=== PATIENT | male | born 1975 | race American Indian/Alaskan Native ===

== ENCOUNTER 2020-10-17 09:12 | Observation (INO) | payer OTHER ==
--- NOTE | 2020-10-17 09:59 | Event Note ---
ED Screening Note ED Screening Note: LEFT SIDE CP AND LA PAIN NO NAUSEA NO DIAPHORESIS NOTHING MAKES PAIN BETTER OR WORSE CIG THC ETOH HTN NEUROPATHY DUE TO ACCIDENT NO FAM HX EKG TO ER MD This initial assessment/diagnostic orders/clinical plan/treatment(s) is/are subject to change based on patients health status, clinical progression and re- assessment by fellow clinical providers in the ED. Further treatment and workup at subsequent clinical providers discretion. Patient/guardian urged not to elope from the ED as their condition may be serious if not clinically assessed and managed. Initial orders include: LABS RO ACS
[2020-10-17] MEDS ORDERED: ASPIRIN 81 MG TAB CHEW PO ONE (10:00)
[2020-10-17] MEDS ORDERED: NITROGLYCERIN 0.4 MG TAB SUBL SL PRN (10:22)
--- NOTE | 2020-10-17 10:44 | XRay Report ---
XR chest 1V ap INDICATION / CLINICAL INFORMATION: Chest Pain. COMPARISON: None available. FINDINGS: SUPPORT DEVICES: None. HEART /PULMONARY VASCULATURE: No significant abnormality. LUNGS / PLEURA: No significant pulmonary or pleural abnormality. No pneumothorax. ADDITIONAL FINDINGS: No significant additional findings. IMPRESSION: 1. No acute findings. Signer Name: Lorenzo Lorenz MD Signed: 10/17/2020 10:40 AM Workstation Name: [id number]
--- NOTE | 2020-10-17 10:52 | Emergency Department Report ---
ED Chest Pain HPI - General Chief Complaint: Chest Pain Stated Complaint: CHEST PAIN, LEFT SIDE OF BODY TINGLIG Time Seen by Provider: 10/17/20 09:51 Source: patient Mode of arrival: Ambulatory Limitations: No Limitations - History of Present Illness Initial Comments: 45-year-old male with no known medical history presents complaining of mid substernal chest pain radiating to his left arm since 6 AM this morning. He reports that the pain has gotten worse and worse and there are associated palpitations. He describes the pain as pressure-like, 8 out of 10 in severity. He has not tried taking anything for his pain. He reports that for the past we ek he has been having intermittent episodes of chest pain lasting a few minutes at a time. However, this episode lasted for much longer and so he decided to come in for further evaluations. He denies any associated fever, headache, vision change, neck pain, abdominal pain, nausea/vomiting, shortness of breath, cough, or any other complaints. - Related Data Home Medications Medication Instructions Recorded Confirmed Last Taken Nebivolol HCl [Bystolic] 5 mg PO QDAY 10/17/20 10/17/20 10/17/20 amLODIPine 5 mg PO DAILY 10/17/20 10/17/20 10/17/20 Allergies Allergy/AdvReac Type Severity Reaction Status Date / Time No Known Allergies Allergy Unverified 10/17/20 09:54 Heart Score - HEART Score History: Moderately suspicious EKG: Non-specific Age: 45-65 Risk factors: No known risk factors Troponin: < normal limit HEART Score: 3 - EKG Read Time Time EKG Completed: 09:50 EKG Read Time: 09:55 ED Review of Systems ROS: Stated complaint: CHEST PAIN, LEFT SIDE OF BODY TINGLIG Other details as noted in HPI Constitutional: denies: chills, fever Eyes: denies: eye pain, vision change ENT: denies: throat pain, congestion Respiratory: denies: cough, shortness of breath Cardiovascular: chest pain, palpitations. denies: syncope Gastrointestinal: denies: abdominal pain, nausea, vomiting Genitourinary: denies: dysuria, frequency Musculoskeletal: denies: back pain, myalgia Skin: denies: rash Neurological: denies: headache, weakness, numbness Psychiatric: denies: depression ED Past Medical Hx - Past Medical History Hx Hypertension: Yes Additional medical history: Neuropathy - Surgical History Past Surgical History?: No - Social History Smoking Status: Current Every Day Smoker Substance Use Type: Alcohol, Marijuana - Medications Home Medications: Home Medications Medication Instructions Recorded Confirmed Last Taken Type Nebivolol HCl [Bystolic] 5 mg PO QDAY 10/17/20 10/17/20 10/17/20 History amLODIPine 5 mg PO DAILY 10/17/20 10/17/20 10/17/20 History ED Physical Exam - General Limitations: No Limitations - Other Other exam information: GENERAL: Well developed and well nourished. No acute distress HEENT: Normocephalic. No obvious signs of trauma. Moist mucous membranes. EYES: Extraocular movements are intact. Pupils are equal round and reactive to light bilaterally NECK: Supple. Trachea is midline. LUNGS: Nonlabored breathing. Equal chest rise bilaterally. Clear to auscultation bilaterally. HEART/CARDIOVASCULAR: Regular rate and rhythm. No murmurs or rubs. VASCULAR: 2+ peripheral pulses. ABDOMEN: Abdomen is soft and nondistended. There is no significant tenderness, guarding or rebound. SKIN: Skin is warm and dry NEURO: Patient is awake, alert, and oriented. workers' compensation magistrate II-XII grossly intact. No focal deficits. Normal motor and sensory exam throughout. Normal speech. MUSCULOSKELETAL: No obvious deformities. No significant tenderness. Normal ROM throughout. ED Course Vital Signs 10/17/20 10/17/20 10/17/20 09:56 10:28 10:30 Temperature 98.5 F Pulse Rate 53 L 63 61 Respiratory 16 13 12 Rate Blood Pressure 132/84 145/109 O2 Sat by Pulse 100 100 100 Oximetry 10/17/20 10/17/20 10/17/20 10:46 11:00 11:16 Temperature Pulse Rate 53 L 58 L 57 L Respiratory 12 18 13 Rate Blood Pressure 128/82 129/75 148/90 O2 Sat by Pulse 100 98 100 Oximetry 10/17/20 10/17/20 10/17/20 11:21 11:30 11:46 Temperature Pulse Rate 61 58 L 57 L Respiratory 13 13 Rate Blood Pressure 148/90 116/77 126/78 O2 Sat by Pulse 98 100 Oximetry 10/17/20 12:00 Temperature Pulse Rate 56 L Respiratory 12 Rate Blood Pressure 121/81 O2 Sat by Pulse 100 Oximetry FLOR score - Flor Score Age > 65: (0) No Aspirin use within the Past 7 Days: (0) No 3 or more CAD Risk Factors: (0) No 2 or more Angina events in past 24 hrs: (1) Yes Known CAD with more than 50% Stenosis: (0) No Elevated Cardiac Markers: (0) No ST Deviation Greater than 0.5mm: (1) Yes FLOR Score: 2 ED Medical Decision Making - Lab Data Result diagrams: 10/17/20 10:29 10/17/20 10:29 Lab Results 10/17/20 10/17/20 10/17/20 Range/Units 10:29 10:29 10:29 WBC 5.1 (4.5-11.0) K/mm3 RBC 4.43 (3.65-5.03) M/mm3 Hgb 14.6 (11.8-15.2) gm/dl Hct 42.5 (35.5-45.6) % MCV 96 H (84-94) fl MCH 33 H (28-32) pg MCHC 35 H (32-34) % RDW 12.7 L (13.2-15.2) % Plt Count 229 (140-440) K/mm3 Lymph % (Auto) 27.2 (13.4-35.0) % [place] % (Auto) 11.0 H (0.0-7.3) % Eos % (Auto) 9.3 H (0.0-4.3) % Baso % (Auto) 0.2 (0.0-1.8) % Lymph # (Auto) 1.4 (1.2-5.4) K/mm3 [place] # (Auto) 0.6 (0.0-0.8) K/mm3 Eos # (Auto) 0.5 H (0.0-0.4) K/mm3 Baso # (Auto) 0.0 (0.0-0.1) K/mm3 Seg Neutrophils % 52.3 (40.0-70.0) % Seg Neutrophils # 2.7 (1.8-7.7) K/mm3 PT 13.4 (12.2-14.9) Sec. INR 0.96 (0.87-1.13) APTT 30.3 (24.2-36.6) Sec. Sodium 137 (137-145) mmol/L Potassium 4.4 (3.6-5.0) mmol/L Chloride 100.8 (98-107) mmol/L Carbon Dioxide 25 (22-30) mmol/L Anion Gap 16 mmol/L BUN 13 (9-20) mg/dL Creatinine 0.8 (0.8-1.3) mg/dL Estimated GFR > 60 ml/min BUN/Creatinine Ratio 16 % Glucose 88 (75-100) mg/dL Calcium 9.4 (8.4-10.2) mg/dL Total Bilirubin 0.90 (0.1-1.2) mg/dL AST 48 H (5-40) units/L ALT 35 (7-56) units/L Alkaline Phosphatase 71 (35-129) units/L Troponin T < 0.010 (0.00-0.029) ng/mL Total Protein 7.3 (6.3-8.2) g/dL Albumin 4.5 (3.9-5) g/dL Albumin/Globulin Ratio 1.6 % - EKG Data -: EKG Interpreted by Me - EKG Data 10/17/20 11:12 Sinus bradycardia. Normal axis. Right bundle branch block. There is approximately [address] elevation noted in lead V1 3 [address] elevation in lead V2. Unclear whether this represents early repolarization. There are no reciprocal changes 10/17/20 11:47 Repeat EKG performed at 1103 is unchanged from prior. Posterior EKG shows no significant ST changes in leads V7-V9 - Radiology Data XR chest 1V ap INDICATION / CLINICAL INFORMATION: Chest Pain. COMPARISON: None available. FINDINGS: SUPPORT DEVICES: None. HEART /PULMONARY VASCULATURE: No significant abnormality. LUNGS / PLEURA: No significant pulmonary or pleural abnormality. No pneumothorax. ADDITIONAL FINDINGS: No significant additional findings. IMPRESSION: 1. No acute findings. Signer Name: Lorenzo Lorenz MD Signed: 10/17/2020 9:40 AM Workstation Name: [id number] - Medical Decision Making 45-year-old male presenting with mid substernal chest pain radiating to the left arm with associated palpitations. Patient has been having intermittent epis odes of chest pain lasting a few minutes but this episode was much longer. He is afebrile and with normal vital signs. He is in no acute distress. His initial EKG showed right bundle branch block with ST elevations in the anterior leads. I discussed with Rashad, the PA who works with Dr. Rodriguez and personally showed him the EKG and they recommend considering STEMI alert. However, when I called the on-call doctor for STEMI alert, he looked at the EKG and does not feel that cardiac alert is appropriate at this time. He recommends normal work-up and management. We will send full set of labs, repeat EKG with posterior leads, and chest x-ray. We will give aspirin and nitroglycerin and re assess. On repeat assessment at 11:40 AM, the patient reports that he has a very mild headache but that his chest pain is resolved. Labs have been resulted and reveal no significant abnormalities. Troponin is negative initially. Repeat EKG was performed and was unchanged from prior. Posterior EKG was performed and showed no acute abnormalities. Nonetheless, the patient will be admitted for f urther work-up and management. All this was discussed with the patient who expressed understanding agreement with the plan of care Critical care attestation.: If time is entered above; I have spent that time in minutes in the direct care of this critically ill patient, excluding procedure time. ED Disposition Clinical Impression: Chest pain Disposition: DC-09 OP ADMIT IP TO THIS HOSP Is pt being admited?: Yes Condition: Stable
[2020-10-17 11:07] LABS: Basophils % (Auto) 0.2 % (0.0-1.8); Eosinophils # (Auto) 0.5 K/mm3 (0.0-0.4); Eosinophils % (Auto) 9.3 % (0.0-4.3); Hematocrit 42.5 % (35.5-45.6); Hemoglobin 14.6 gm/dl (11.8-15.2); Lymphocytes # (Auto) 1.4 K/mm3 (1.2-5.4); Lymphocytes % (Auto) 27.2 % (13.4-35.0); Mean Corpuscular HGB Conc 35 % (32-34); Mean Corpuscular Volume 96 fl (84-94); Monocytes # (Auto) 0.6 K/mm3 (0.0-0.8); Platelet Count 229 K/mm3 (140-440); Red Blood Count 4.43 M/mm3 (3.65-5.03); Red Cell Distribution Width 12.7 % (13.2-15.2)
[2020-10-17 11:16] LABS: INR 0.96 (0.87-1.13)
[2020-10-17 11:17] LABS: Partial Thromboplastin Time 30.3 Sec. (24.2-36.6)
[2020-10-17 11:30] LABS: Alanine Aminotransferase 35 units/L (7-56); Albumin 4.5 g/dL (3.9-5); BUN/Creatinine Ratio 16; Blood Urea Nitrogen 13 mg/dL (9-20); Calcium 9.4 mg/dL (8.4-10.2); Hemolysis Index 38
[2020-10-17 16:14] LABS: Bilirubin,Urine NEG (Negative); Blood,Urine NEG (Negative); Color,Urine Yellow (Yellow); Mucus,Urine FEW /HPF; Protein,Urine <15 mg/dL mg/dL (Negative); WBC,Urine < 1.0 /HPF (0.0-6.0)
[2020-10-17 16:22] LABS: Benzodiazepines Screen,Urine Negative; Methadone Screen,Urine Negative; Opiate Screen,Urine Negative
[2020-10-17 16:40] LABS: Amphetamine Screen,Urine Positive; Cannabinoid Screen,Urine Positive; Cocaine Screen,Urine Positive
--- NOTE | 2020-10-17 18:42 | History and Physical Report ---
History of Present Illness Date of examination: 10/17/20 Date of admission: 10/17/20 11:42 Chief complaint: Chest pain since a.m. History of present illness: 45-year-old male history of hypertension comes in for left-sided chest pain since a.m. Chest pain is substernal. Associated palpitations present. No radiation. Chest pain is about 8 on a scale of 1-10. No shortness of breath. No diaphoresis. No exacerbating or relieving factors. No prior history of for coronary artery disease. No stents. Heart Score - HEART Score History: Moderately suspicious EKG: Non-specific Age: 45-65 Risk factors: No known risk factors Troponin: < normal limit HEART Score: 3 - EKG Read Time Time EKG Completed: 09:50 EKG Read Time: 09:55 - Past Medical History --Hypertension: Yes --Additional medical history: Neuropathy - Surgical History Past Surgical History?: No - Social History Smoking Status: Current Every Day Smoker Substance Use Type: Alcohol, Marijuana - Medications Home Medications: Home Medications Medication Instructions Recorded Confirmed Last Taken Type Nebivolol HCl [Bystolic] 5 mg PO QDAY 10/17/20 10/17/20 10/17/20 History amLODIPine 5 mg PO DAILY 10/17/20 10/17/20 10/17/20 History Review of Systems ROS: Stated complaint: CHEST PAIN, LEFT SIDE OF BODY TINGLIG Other details as noted in HPI Constitutional: denies: chills, fever Eyes: denies: eye pain, vision change ENT: denies: throat pain, congestion Respiratory: denies: cough, shortness of breath Cardiovascular: chest pain, palpitations. denies: syncope Gastrointestinal: denies: abdominal pain, nausea, vomiting Genitourinary: denies: dysuria, frequency Musculoskeletal: denies: back pain, myalgia Skin: denies: rash Neurological: denies: headache, weakness, numbness Psychiatric: denies: depression Medications and Allergies Allergies Allergy/AdvReac Type Severity Reaction Status Date / Time No Known Allergies Allergy Unverified 10/17/20 09:54 Home Medications Medication Instructions Recorded Confirmed Last Taken Type Nebivolol HCl [Bystolic] 5 mg PO QDAY 10/17/20 10/17/20 10/17/20 History amLODIPine 5 mg PO DAILY 10/17/20 10/17/20 10/17/20 History Active Meds: Active Medications Nitroglycerin (Nitroglycerin 0.4 Mg Tab Subl) 0.4 mg SL .Q5MIN PRN PRN Reason: Chest Pain Last Admin: 10/17/20 11:21 Dose: 0.4 mg Documented by: Exam - Constitutional Vitals: Temp Pulse Resp BP Pulse Ox 98.5 F 56 L 12 121/81 100 10/17/20 09:56 10/17/20 12:00 10/17/20 12:00 10/17/20 12:00 10/17/20 12:00 General appearance: Present: no acute distress, well-nourished - EENT Eyes: Present: PERRL ENT: hearing intact, clear oral mucosa - Neck Neck: Present: supple, normal ROM - Respiratory Respiratory effort: normal Respiratory: bilateral: CTA - Cardiovascular Heart rate: 78 Rhythm: regular Heart Sounds: Present: S1 & S2. Absent: rub, click - Extremities Extremities: pulses symmetrical, No edema Peripheral Pulses: within normal limits - Abdominal General gastrointestinal: Present: soft, non-tender, non-distended, normal bowel sounds Male genitourinary: Present: normal - Integumentary Integumentary: Present: clear, warm, dry - Musculoskeletal Musculoskeletal: gait normal, strength equal bilaterally - Psychiatric Psychiatric: appropriate mood/affect, intact judgment & insight - Neurologic Neurologic: CNII-XII intact, moves all extremities - Allied Health Allied health notes reviewed: nursing, case management HEART Score - HEART Score EKG: Non-specific Age: 45-65 Risk factors: No known risk factors Troponin: Troponin T < 0.010 ng/mL (0.00-0.029) 10/17/20 15:48 Troponin: < normal limit Results - Labs CBC & Chem 7: 10/18/20 02:44 10/18/20 02:44 Labs: Laboratory Last Values WBC 5.1 K/mm3 (4.5-11.0) 10/17/20 10:29 RBC 4.43 M/mm3 (3.65-5.03) 10/17/20 10:29 Hgb 14.6 gm/dl (11.8-15.2) 10/17/20 10:29 Hct 42.5 % (35.5-45.6) 10/17/20 10:29 MCV 96 fl (84-94) H 10/17/20 10:29 MCH 33 pg (28-32) H 10/17/20 10: MCHC 35 % (32-34) H 10/17/20 10:29 RDW 12.7 % (13.2-15.2) L 10/17/20 10:29 Plt Count 229 K/mm3 (140-440) 10/17/20 10:29 Lymph % (Auto) 27.2 % (13.4-35.0) 10/17/20 10:29 [place] % (Auto) 11.0 % (0.0-7.3) H 10/17/20 10: Eos % (Auto) 9.3 % (0.0-4.3) H 10/17/20 10: Baso % (Auto) 0.2 % (0.0-1.8) 10/17/20 10: Lymph # (Auto) 1.4 K/mm3 (1.2-5.4) 10/17/20 10: [place] # (Auto) 0.6 K/mm3 (0.0-0.8) 10/17/20 10: Eos # (Auto) 0.5 K/mm3 (0.0-0.4) H 10/17/20 10: Baso # (Auto) 0.0 K/mm3 (0.0-0.1) 10/17/20 10: Seg Neutrophils % 52.3 % (40.0-70.0) 10/17/20 10: Seg Neutrophils # 2.7 K/mm3 (1.8-7.7) 10/17/20 10:29 PT 13.4 Sec. (12.2-14.9) 10/17/20 10:29 INR 0.96 (0.87-1.13) 10/17/20 10: APTT 30.3 Sec. (24.2-36.6) 10/17/20 10:29 Sodium 137 mmol/L (137-145) 10/17/20 10:29 Potassium 4.4 mmol/L (3.6-5.0) 10/17/20 10: Chloride 100.8 mmol/L (98-107) 10/17/20 10: Carbon Dioxide 25 mmol/L (22-30) 10/17/20 10:29 Anion Gap 16 mmol/L 10/17/20 10:29 BUN 13 mg/dL (9-20) 10/17/20 10:29 Creatinine 0.8 mg/dL (0.8-1.3) 10/17/20 10:29 Estimated GFR > 60 ml/min 10/17/20 10:29 BUN/Creatinine Ratio 16 % 10/17/20 10:29 Glucose 88 mg/dL (75-100) 10/17/20 10:29 Calcium 9.4 mg/dL (8.4-10.2) 10/17/20 10:29 Total Bilirubin 0.90 mg/dL (0.1-1.2) 10/17/20 10:29 AST 48 units/L (5-40) H 10/17/20 10:29 ALT 35 units/L (7-56) 10/17/20 10:29 Alkaline Phosphatase 71 units/L (35-129) 10/17/20 10:29 Troponin T < 0.010 ng/mL (0.00-0.029) 10/17/20 15:48 Total Protein 7.3 g/dL (6.3-8.2) 10/17/20 10:29 Albumin 4.5 g/dL (3.9-5) 10/17/20 10:29 Albumin/Globulin Ratio 1.6 % 10/17/20 10:29 Urine Color Yellow (Yellow) 10/17/20 Unknown Urine Turbidity Clear (Clear) 10/17/20 Unknown Urine pH 7.0 (5.0-7.0) 10/17/20 Unknown Ur Specific [place] 1.020 (1.003-1.030) 10/17/20 Unknown Urine Protein <15 mg/dl mg/dL (Negative) 10/17/20 Unknown Urine Glucose (UA) Neg mg/dL (Negative) 10/17/20 Unknown Urine Ketones Neg mg/dL (Negative) 10/17/20 Unknown Urine Blood Neg (Negative) 10/17/20 Unknown Urine Nitrite Neg (Negative) 10/17/20 Unknown Urine Bilirubin Neg (Negative) 10/17/20 Unknown Urine Urobilinogen 2.0 mg/dL (<2.0) 10/17/20 Unknown Ur Leukocyte Esterase Neg (Negative) 10/17/20 Unknown Urine WBC (Auto) < 1.0 /HPF (0.0-6.0) 10/17/20 Unknown Urine RBC (Auto) 3.0 /HPF (0.0-6.0) 10/17/20 Unknown Urine Mucus Few /HPF 10/17/20 Unknown Urine Opiates Screen Negative 10/17/20 Unknown Urine Methadone Screen Negative 10/17/20 Unknown Ur Barbiturates Screen Negative 10/17/20 Unknown Ur Phencyclidine Scrn Negative 10/17/20 Unknown Ur Amphetamines Screen Positive 10/17/20 Unknown U Benzodiazepines Scrn Negative 10/17/20 Unknown Urine Cocaine Screen Positive 10/17/20 Unknown U Marijuana (THC) Screen Positive 10/17/20 Unknown Drugs of Abuse Note Disclamer 10/17/20 Unknown Short CBC 10/17/20 10/18/20 Range/Units 10:29 02:44 WBC 5.1 4.7 (4.5-11.0) K/mm3 Hgb 14.6 13.0 (11.8-15.2) gm/dl Hct 42.5 37.7 (35.5-45.6) % Plt Count 229 195 (140-440) K/mm3 BMP 10/17/20 10/18/20 10:29 02:44 Sodium 137 137 Potassium 4.4 4.1 Chloride 100.8 101.0 Carbon Dioxide 25 27 BUN 13 13 Creatinine 0.8 0.9 Glucose 88 97 Calcium 9.4 9.0 Cardiac Enzymes 10/17/20 10/17/20 10/17/20 Range/Units 10:29 15:48 22:54 Troponin T < 0.010 < 0.010 < 0.010 (0.00-0.029) ng/mL 10/18/20 Range/Units 02:44 Troponin T < 0.010 (0.00-0.029) ng/mL Liver Function 10/17/20 10/18/20 Range/Units 10:29 02:44 Total Bilirubin 0.90 0.50 (0.1-1.2) mg/dL AST 48 H 38 (5-40) units/L ALT 35 29 (7-56) units/L Alkaline Phosphatase 71 62 (35-129) units/L Albumin 4.5 3.9 (3.9-5) g/dL Urine 10/17/20 Range/Units Unknown Urine Color Yellow (Yellow) Urine pH 7.0 (5.0-7.0) Ur Specific [place] 1.020 (1.003-1.030) Urine Protein <15 mg/dl (Negative) mg/dL Urine Glucose (UA) Neg (Negative) mg/dL Assessment and Plan Advance Directives: Yes (Full code) VTE prophylaxis?: Chemical Plan of care discussed with patient/family: Yes - Patient Problems (1) Acute coronary syndrome Current Visit: Yes Status: Acute Plan to address problem: Chest pain work-up Differential diagnosis of costochondritis and GERD serial troponins Lexiscan in the morning (2) Hypertension Current Visit: Yes Status: Chronic Qualifiers: Hypertension type: essential hypertension Qualified Code(s): I10 - Essential (primary) hypertension Plan to address problem: Continue antihypertensives (3) Polysubstance abuse Current Visit: Yes Status: Chronic Plan to address problem: Patient's urinary drug screen is positive for amphetamines cocaine and marijuana Cocaine may be causing the chest pain Patient counseled. (4) DVT prophylaxis Current Visit: Yes Status: Acute Plan to address problem: On heparin and GI prophylaxis
[2020-10-17] MEDS ORDERED: HYDROmorphone 1 MG/1 ML INJ IV PRN (20:55)
[2020-10-17] MEDS ORDERED: oxyCODONE /ACETAMINOPHEN 5-325MG TAB PO PRN (20:55)
[2020-10-17] MEDS ORDERED: ONDANSETRON 4 MG/2 ML INJ IV PRN (20:55)
[2020-10-17] MEDS ORDERED: ACETAMINOPHEN 325 MG TAB PO PRN (20:55)
[2020-10-17] MEDS ORDERED: NEBIVOLOL HCL 5 MG PO SCH (21:15)
[2020-10-17] MEDS: amLODIPine 5 MG TAB PO SCH (22:30)
[2020-10-17] MEDS: METOPROLOL SUCCINATE XL 50 MG TAB PO SCH (22:31)
[2020-10-17] MEDS: FAMOTIDINE 20 MG TAB PO SCH (22:31)
[2020-10-18 03:13] LABS: Basophils # (Auto) 0.1 K/mm3 (0.0-0.1); Basophils % (Auto) 1.3 % (0.0-1.8); Eosinophils # (Auto) 0.4 K/mm3 (0.0-0.4); Eosinophils % (Auto) 7.9 % (0.0-4.3); Hematocrit 37.7 % (35.5-45.6); Lymphocytes # (Auto) 1.3 K/mm3 (1.2-5.4); Lymphocytes % (Auto) 28.8 % (13.4-35.0); Mean Corpuscular HGB Conc 34 % (32-34); Mean Corpuscular Volume 96 fl (84-94); Monocytes # (Auto) 0.5 K/mm3 (0.0-0.8); Monocytes % (Auto) 10.1 % (0.0-7.3); Platelet Count 195 K/mm3 (140-440); Red Blood Count 3.94 M/mm3 (3.65-5.03)
[2020-10-18 03:37] LABS: Alanine Aminotransferase 29 units/L (7-56); Albumin 3.9 g/dL (3.9-5); BUN/Creatinine Ratio 14; Blood Urea Nitrogen 13 mg/dL (9-20); Hemolysis Index 6
[2020-10-18] MEDS: amLODIPine 5 MG TAB PO SCH (09:55)
[2020-10-18] MEDS: METOPROLOL SUCCINATE XL 50 MG TAB PO SCH (09:55)
[2020-10-18] MEDS: FAMOTIDINE 20 MG TAB PO SCH (09:55)
--- NOTE | 2020-10-18 10:56 | Consultation ---
History of Present Illness Consult date: 10/18/20 Consult reason: chest pain History of present illness: 45-year old M with a history of hypertension and takes bystolic 5 mg and amlodipine 5 mg daily. No prior cardiac history. Most recent cardiac workup was done as an outpatient in September. He had an exercise thallium stress test that was normal. Patient exercised 9 minutes of Neo protocol. At that time an echocardiogram demonstrated normal left ventricular systolic function, ejection fraction 55%. He presents to this hospital, admitted with chest pain. Chest pain is poorly characterized and atypical. Chest x-ray is negative. Labs most significant for poly-substance abuse. Serial troponin measurements were normal. His presenting ECG is sinus rhythm with chronic RBBB and early repolarization. Cardiology consultation has been requested. Past History Past Medical History: hypertension Social history: smoking (poly substance abuse), alcohol abuse Medications and Allergies Allergies Allergy/AdvReac Type Severity Reaction Status Date / Time No Known Allergies Allergy Unverified 10/17/20 09:54 Home Medications Medication Instructions Recorded Confirmed Last Taken Type Nebivolol HCl [Bystolic] 5 mg PO QDAY 10/17/20 10/17/20 10/17/20 History amLODIPine 5 mg PO DAILY 10/17/20 10/17/20 10/17/20 History Active Meds: Active Medications Acetaminophen (Acetaminophen 325 Mg Tab) 650 mg PO Q4H PRN PRN Reason: Pain MILD(1-3)/Fever >100.5/FUENTES Amlodipine Besylate (Amlodipine 5 Mg Tab) 5 mg PO DAILY [facility] Last Admin: 10/18/20 09:55 Dose: 5 mg Documented by: Famotidine (Famotidine 20 Mg Tab) 20 mg PO BID [facility] Last Admin: 10/18/20 09:55 Dose: 20 mg Documented by: Hydromorphone HCl (Hydromorphone 1 Mg/1 Ml Inj) 0.5 mg IV Q3H PRN PRN Reason: Pain , Severe (7-10) Metoprolol Succinate (Metoprolol Succinate Xl 50 Mg Tab) 50 mg PO QDAY [facility] Last Admin: 10/18/20 09:55 Dose: 50 mg Documented by: Nitroglycerin (Nitroglycerin 0.4 Mg Tab Subl) 0.4 mg SL .Q5MIN PRN PRN Reason: Chest Pain Last Admin: 10/17/20 11:21 Dose: 0.4 mg Documented by: Ondansetron HCl (Ondansetron 4 Mg/2 Ml Inj) 4 mg IV Q8H PRN PRN Reason: Nausea And Vomiting Oxycodone/Acetaminophen (Oxycodone /Acetaminophen 5-325mg Tab) 1 tab PO Q6H PRN PRN Reason: Pain, Moderate (4-6) Last Admin: 10/17/20 22:31 Dose: 1 tab Documented by: Sodium Chloride (Sodium Chloride 0.9% 10 Ml Flush Syringe) 10 ml IV BID [facility] Last Admin: 10/18/20 09:55 Dose: 10 ml Documented by: Sodium Chloride (Sodium Chloride 0.9% 10 Ml Flush Syringe) 10 ml IV PRN PRN PRN Reason: LINE FLUSH Review of Systems Cardiovascular: chest pain, no palpitations, no edema, no syncope, no shortness of breath Physical Examination Vital Signs Temp Pulse Resp BP Pulse Ox 98.5 F 53 L 16 132/84 100 10/17/20 09:56 10/17/20 09:56 10/17/20 09:56 10/17/20 09:56 10/17/20 09:56 General appearance: no acute distress HEENT: Positive: PERRL Neck: Positive: trachea midline Cardiac: Positive: Reg Rate and Rhythm Lungs: Positive: Normal Breath Sounds Neuro: Positive: Grossly Intact Extremities: Absent: edema Results 10/18/20 02:44 10/18/20 02:44 Cardiac Enzymes 10/17/20 10/18/20 Range/Units 10:29 02:44 AST 48 H 38 (5-40) units/L Coagulation 10/17/20 Range/Units 10:29 PT 13.4 (12.2-14.9) Sec. INR 0.96 (0.87-1.13) APTT 30.3 (24.2-36.6) Sec. CBC 10/17/20 10/18/20 Range/Units 10:29 02:44 WBC 5.1 4.7 (4.5-11.0) K/mm3 RBC 4.43 3.94 (3.65-5.03) M/mm3 Hgb 14.6 13.0 (11.8-15.2) gm/dl Hct 42.5 37.7 (35.5-45.6) % Plt Count 229 195 (140-440) K/mm3 Lymph # (Auto) 1.4 1.3 (1.2-5.4) K/mm3 [place] # (Auto) 0.6 0.5 (0.0-0.8) K/mm3 Eos # (Auto) 0.5 H 0.4 (0.0-0.4) K/mm3 Baso # (Auto) 0.0 0.1 (0.0-0.1) K/mm3 Comprehensive Metabolic Panel 10/17/20 10/18/20 Range/Units 10:29 02:44 Sodium 137 137 (137-145) mmol/L Potassium 4.4 4.1 (3.6-5.0) mmol/L Chloride 100.8 101.0 (98-107) mmol/L Carbon Dioxide 25 27 (22-30) mmol/L BUN 13 13 (9-20) mg/dL Creatinine 0.8 0.9 (0.8-1.3) mg/dL Glucose 88 97 (75-100) mg/dL Calcium 9.4 9.0 (8.4-10.2) mg/dL AST 48 H 38 (5-40) units/L ALT 35 29 (7-56) units/L Alkaline Phosphatase 71 62 (35-129) units/L Total Protein 7.3 6.3 (6.3-8.2) g/dL Albumin 4.5 3.9 (3.9-5) g/dL Assessment and Plan - Patient Problems (1) Chest pain Current Visit: Yes Status: Acute Plan to address problem: 09/2020 exercise thallium stress test that was normal. Patient exercised 9 minutes of Neo protocol. 09/2020 echocardiogram demonstrated normal left ventricular systolic function, ejection fraction 55%. Despite recent negative cardiac workup, will proceed with a cardiac cath for further ischemic assessment.
[2020-10-18] MEDS ORDERED: ASPIRIN 81 MG TAB CHEW PO SCH (11:00)
[2020-10-18] MEDS ORDERED: HEPARIN/NS 5000 UNIT/500ML 1,000 ML IR ONE (11:16)
[2020-10-18] MEDS ORDERED: NITROGLYCERIN SYRINGE 3 ML ONE (11:16)
[2020-10-18 11:46] VITALS: BP 126/84
[2020-10-18] MEDS: MIDAZOLAM 2 MG/2 ML INJ ONE ×2 (11:53→12:07)
[2020-10-18] MEDS: fentaNYL 100 MCG/2 ML INJ ONE ×3 (11:53→12:09)
[2020-10-18] MEDS: LIDOCAINE (2%) 20 MG/1 ML VIAL 20 ML MDV INFILTRATI ONE ×2 (11:53→12:09)
[2020-10-18] MEDS: VERAPAMIL 5 MG/2 ML INJ ONE ×2 (11:54→12:11)
[2020-10-18] MEDS: HEPARIN 10,000 UNITS/10 ML VIAL ONE ×2 (11:54→12:11)
[2020-10-18] MEDS: SODIUM CHLORIDE 0.9% 500 ML 500 ML ONE ×2 (11:55→12:11)
--- NOTE | 2020-10-18 12:32 | Event Note ---
Date: 10/18/20 Cardiac catheterization was completed via the right radial approach, no complications. We found angiographically normal coronary arteries, normal left ventricular systolic function with ejection fraction 55%. No further cardiac work-up is indicated, patient is stable for cardiac discharge. If there is any further chest pain, he should be directed for evaluation of noncardiac chest pain.
[2020-10-18] MEDS ORDERED: traMADol 50 MG TAB PO PRN (12:33)
--- NOTE | 2020-10-18 12:42 | Discharge Summary ---
Providers - Providers Date of Admission: 10/17/20 11:42 Date of discharge: 10/18/20 Attending physician: EDWIN MONCADA 10/18/20 07:39 Consult to Physician [CONS] Routine Comment: Consulting Provider: JONATHAN GLOVER Physician Instructions: Reason For Exam: chest pain 10/18/20 12:33 Consult to Cardiac Rehabilitation [CONS] Routine Reason For Exam: Cardiac Rehab Evaluation Primary care physician: APPLICATIONS MANAGER Hospitalization Condition: Stable Hospital course: Patient is 45-year-old male with history of hypertension, presented with left- sided chest pain since a.m. Chest pain is substernal. Associated palpitations present. No radiation. Chest pain is about 8 on a scale of 1-10. No shortness of breath. No diaphoresis. No exacerbating or relieving factors. No prior history of for coronary artery disease. No stents. He was seen and evaluated in Emergency Department. Troponins were normal. He was admitted to rule out acute coronary syndrome. Patient was evaluated by Cardiology, Dr. Glover. patient had normal stress test 2 weeks ago but because of recurrent chest pain, cardiac cath was recommended. cardiac catheterization was done on 10/18/20 and this revealed normal coronary arteries. He was therefore discharged home. Chest pain, non cardiac due to GERD. Disposition: DC- TO HOME OR SELFCARE Final Discharge Diagnosis (Prints w/discharge instructions): 1.Chest pain due to GERD. 2.GERD - Discharge Diagnoses (1) GERD (gastroesophageal reflux disease) Status: Acute (2) Chest pain Status: Acute Comment: due to GERD (3) Hypertension Status: Chronic Qualifiers: Hypertension type: essential hypertension Qualified Code(s): I10 - [place] manuelal (primary) hypertension Core Measure Documentation - Palliative Care Palliative Care/ Comfort Measures: Not Applicable - Core Measures Any of the following diagnoses?: none Exam - Constitutional Vitals: Temp Pulse Resp BP Pulse Ox 97.9 F 74 19 126/84 98 10/18/20 10:30 10/18/20 10:30 10/18/20 10:30 10/18/20 10:30 10/18/20 10:30 Plan Activity: no restrictions Diet: low fat, low cholesterol, low salt Plan of Treatment: 1.Follow up with PCP in 1 week. 2.Follow up with Dr. Glover , Cardiology in 1 week Follow up with: PRIMARY CAREMD [Primary Care Provider] - 3-5 Days Forms: [facility]el[facility] AGUIRRE D/C Instructions, Work/School Release Form Prescriptions: Famotidine [Pepcid] 20 mg PO BID #60 tablet
[2020-10-18] MEDS ORDERED: SODIUM CHLORIDE 0.9% 1000 ML 1,000 ML IV SCH (12:45)
--- NOTE | 2020-10-19 19:21 | Electrocardiograph Report ---
[facility] Test Date: 2020-10-17 Test Time: 09:50:15 Pat Name: FAMILIA EVANGELISTA Department: ED Room: ED-2 Gender: M Qc Analyst: [id number] : 1975 Requested By: MICK SILVEIRA Order Number: [id number] Reading MD: Luis Rodriguez Measurements Intervals [place] Rate: 55 P: 58 SC: 156 QRS: 48 QRSD: 134 T: 19 QT: 438 QTc: 421 Interpretive Statements Sinus bradycardia Right bundle branch block ST elev, probable normal early repol pattern No previous ECG available for comparison Electronically Signed On 10-19-2020 19:20:59 EDT by Luis Rodriguez
--- NOTE | 2020-10-19 19:24 | Electrocardiograph Report ---
[facility] Test Date: 2020-10-17 Test Time: 11:03:59 Pat Name: FAMILIA EVANGELISTA Department: ED Room: ED-2 Gender: M Labeling Machine Operator: ONEAL : 1975 Requested By: MICK SILVEIRA Order Number: [id number] Reading MD: Luis Rodriguez Measurements Intervals [place] Rate: 52 P: 61 [place]: 152 QRS: 40 QRSD: 128 T: 20 QT: 466 QTc: 436 Interpretive Statements Sinus bradycardia Right bundle branch block ST elev, probable normal early repol pattern Compared to ECG 10/17/2020 09:50:15 No significant changes Electronically Signed On 10-19-2020 19:23:53 EDT by Luis Rodriguez
--- NOTE | 2020-10-19 19:25 | Electrocardiograph Report ---
[facility] Test Date: 2020-10-17 Test Time: 11:12:32 Pat Name: FAMILIA EVANGELISTA Department: ED Room: ED-2 Gender: M Aircraft Cleaner: ONEAL : 1975 Requested By: VIOLA RUBIN Order Number: [id number] Reading MD: Luis Rodriguez Measurements Intervals [place] Rate: 59 P: 55 [place]: 156 QRS: 30 QRSD: 145 T: 14 QT: 451 QTc: 447 Interpretive Statements Sinus bradycardia Nonspecific intraventricular conduction delay Compared to ECG 10/17/2020 11:03:59 Right bundle-branch block no longer present ST (T wave) deviation no longer present (Posterior EKG) Electronically Signed On 10-19-2020 19:24:50 EDT by Luis Rodriguez
--- NOTE | 2020-10-19 19:35 | Electrocardiograph Report ---
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
== END 2020-10-18 17:11 | disposition home or self-care (01) ==
LOC: ED 09:12 → 4A 11:42
PROVIDERS: ADMIT Family Medicine; ATTEND Internal Medicine
DX: I24.9 Acute ischemic heart disease, unspecified (principal); R07.89 Other chest pain; I10 Essential (primary) hypertension; F15.10 Other stimulant abuse, uncomplicated; F14.10 Cocaine abuse, uncomplicated; F12.10 Cannabis abuse, uncomplicated; G62.9 Polyneuropathy, unspecified; F17.210 Nicotine dependence, cigarettes, uncomplicated; Z79.899 Other long term (current) drug therapy
CPT/HCPCS: 36415; 71045; 80053; 80307; 81001; 83036; 84484; 85025; 85610; 85730; 93005; 93458; 99285; 99406; C1894; G0378; J1644; J2250; J3010; J7040; Q9967